=== PATIENT | female | born 1940 | race Caucasian/White ===

== ENCOUNTER 2018-12-09 18:39 | Emergency (ER) | payer MEDICARE, OTHER ==
[~2018-12-09] VITALS: Ht 157.4 cm; Wt 62.3 kg
[2018-12-09] MEDS ORDERED: MECLIZINE 25 MG (ANTIVERT) TAB PO ONE (19:15)
[2018-12-09] MEDS ORDERED: cloNIDine 0.2 MG (CATAPRES) TAB PO ONE (19:15)
[2018-12-09] MEDS ORDERED: ONDANSETRON 4 MG/2 ML (SDV) Z0FRAN IVP ONE (19:15)
[2018-12-09 19:21] LABS: BASOPHILS % (AUTO) 1 % (0-10); EOSINOPHILS % (AUTO) 3 % (0-10); HEMATOCRIT 40 % (35-52); LYMPHOCYTES # (AUTO) 1.3 X 10^3 (1.0-4.0); LYMPHOCYTES % (AUTO) 16 % (12-44); MEAN CORPUSCULAR HEMOGLOBIN 30 PG (25-34); MEAN CORPUSCULAR HGB CONC 33 G/DL (32-36); MEAN CORPUSCULAR VOLUME 91 FL (80-99); MEAN PLATELET VOLUME 8.4 FL (7.4-10.4); MONOCYTES % (AUTO) 10 % (0-12); NEUTROPHILS # (AUTO) 6.3 X 10^3 (1.8-7.8); NEUTROPHILS % (AUTO) 71 % (42-75); PLATELET COUNT 390 10^3/uL (130-400); RED CELL DISTRIBUTION WIDTH 14.2 % (10.0-14.5); WHITE BLOOD COUNT 8.8 10^3/uL (4.3-11.0)
[2018-12-09 19:22] LABS: BASOPHILS # (AUTO) 0.1 10^3/uL (0.0-0.1); EOSINOPHILS # (AUTO) 0.2 10^3/uL (0.0-0.3); MONOCYTES # (AUTO) 0.9 X 10^3 (0.0-1.0)
[2018-12-09 19:32] LABS: BILIRUBIN,URINE NEGATIVE (NEGATIVE); CLARITY,URINE CLEAR; COLOR,URINE YELLOW; GLUCOSE, URINE (UA) NEGATIVE (NEGATIVE); KETONES,URINE NEGATIVE (NEGATIVE); LEUKOCYTE ESTERASE ,URINE NEGATIVE (NEGATIVE); NITRITE,URINE NEGATIVE (NEGATIVE); PH,URINE 7.5 (5-9); PROTEIN,URINE NEGATIVE (NEGATIVE); UROBILINOGEN,URINE 0.2 MG/DL (NORMAL)
--- NOTE | 2018-12-09 19:40 | Diagnostic Imaging Report ---
INDICATION: Dizziness and nausea. Frontal chest obtained at 7:06 p.m. Heart is borderline in size. Aorta is tortuous. There is elevation of the right hemidiaphragm. There are no acute infiltrates. There is a calcified granuloma in the left lung base. There is no pneumothorax or pleural fluid. IMPRESSION: Borderline heart size with tortuous aorta. Elevation of the right hemidiaphragm. No acute process in the chest. Dictated by: Dictated on workstation # [id number]
--- NOTE | 2018-12-09 19:43 | Diagnostic Imaging Report ---
INDICATION: Dizziness and nausea. Noncontrast brain CT performed. There is no prior study for comparison. There were no extra-axial fluid collections. There is mild atrophic change. There are mild low-density changes in the deep white matter compatible with chronic ischemic change. There is some ill-defined low-density in the subcortical region in the right frontal lobe of uncertain chronicity. Consider elective MRI for further evaluation. The ventricles are normal in size. Calvarial windows appear normal. IMPRESSION: There are mild atrophic changes. There are some chronic ischemic changes in deep white matter. There is ill-defined low-density change in the right frontal lobe which may be due to old ischemic change but would consider elective MRI pre and postcontrast for further evaluation to exclude underlying lesion. There is no acute finding otherwise seen. Dictated by: Dictated on workstation # [id number]
[2018-12-09 19:48] LABS: ALANINE AMINOTRANSFERASE 21 U/L (0-55); ALBUMIN 4.9 GM/DL (3.2-4.5); ALKALINE PHOSPHATASE 54 U/L (40-136); BILIRUBIN,TOTAL 0.4 MG/DL (0.1-1.0); BUN/CREATININE RATIO 16; CALCIUM 9.8 MG/DL (8.5-10.1); CARBON DIOXIDE 28 MMOL/L (21-32); CHLORIDE 90 MMOL/L (98-107); CREATININE SERUM 0.73 MG/DL (0.60-1.30); GFR ESTIMATED > 60; GLUCOSE 112 MG/DL (70-105); POTASSIUM 3.3 MMOL/L (3.6-5.0); SODIUM 133 MMOL/L (135-145); TOTAL PROTEIN 7.8 GM/DL (6.4-8.2)
[2018-12-09] MEDS ORDERED: LORA-405 SL (20:37)
[2018-12-09] MEDS ORDERED: ONDA4TAB11 PO (20:37)
--- NOTE | 2018-12-09 20:46 | ED Cardiac General ---
History of Present Illness General Chief Complaint: Cardiac/General Problems Stated Complaint: BP 182/100; N/V & DIZZINESS Nursing Triage Note: Patient c/o nausea, vomiting, dizziness, and high blood pressure. States that she started feeling bad around 5pm after getting a message. Her family reports that the patient started feeling dizzy and nauseated so they took her blood pressure and it was reportedly 182/100. The went to [facility] walk in clinic and were told to come to the ED for further evaluation. Source: patient Exam Limitations: no limitations History of Present Illness Date Seen by Provider: Dec 09, 2018 Time Seen by Provider: 18:30 Initial Comments Patient is 78-year-old female with history of vertigo presents with acute onset of vertigo/dizziness prior prior to ED arrival. Patient was getting a massage treatment of her sciatica times symptoms began. Patient reports feeling dizzy pounds. She reports nausea vomiting and feeling unwell. She denies headache, blurred vision, chest pain palpitation shortness of breath. Dizziness this was when the patient opens her eyes and with head movement. Patient also noted to be hypertensive. States she took her medications earlier today but did not have meclizine at that time the dizziness began. No urinary frequency urgency. Extremity weakness loss of sensation. No other strokelike symptoms. Timing/Duration: 1 hour Severity: moderate Activities at Onset: activity Prior CP/Workup: no prior chest pain Associated Systoms: Nausea/Vomiting Allergies and Home Medications Allergies Uncoded Allergies: sulf (Allergy, Unknown, 12/09/18) Home Medications Lorazepam 1 Mg Tablet, 1 MG SL Q8 PRN for q8 Prescribed by: FERNANDO GALLEGOS on 12/09/182036 Ondansetron 4 Mg Tab.rapdis, 4 MG PO Q6H Prescribed by: FERNANDO GALLEGOS on 12/09/182036 Patient Home Medication List Home Medication List Reviewed: Yes Review of Systems Review of Systems Constitutional: diaphoresis EENTM: See HPI Cardiovascular: See HPI Gastrointestinal: See HPI Genitourinary: See HPI Musculoskeletal: see HPI Skin: see HPI Psychiatric/Neurological: See HPI Endocrine: Excessive Sweating Hematologic/Lymphatic: See HPI Past Mayvnxy-Uavaxb-Iolwkj Hx Past Med/Social Hx: Reviewed Nursing Past Med/Soc Hx Patient Social History Alcohol Use: Denies Use Recreational Drug Use: No Smoking Status: Never a Smoker 2nd Hand Smoke Exposure: No Recent Foreign Travel: No Contact w/Someone Who Travel: No Recent Infectious Disease Expo: No Recent Hopitalizations: No Physical Abuse: No Sexual Abuse: No Mistreated: No Fear: No Seasonal Allergies Seasonal Allergies: Yes Past Medical History Surgeries: Yes Adrenal, Hysterectomy Respiratory: Yes Asthma Cardiac: Yes Hypertension Neurological: No [employer] History: Hysterectomy Genitourinary: No Gastrointestinal: No Musculoskeletal: No Endocrine: No HEENT: No Cancer: No Psychosocial: No Integumentary: No Blood Disorders: No Physical Exam Vital Signs Vital Signs - First Documented 12/09/18 18:53 Temp 35.8 Pulse 91 Resp 16 B/P (MAP) 209/110 (143) Pulse Ox 96 O2 Delivery Room Air Capillary Refill : Less Than 3 Seconds Height, Weight, BMI Height: '" Weight: lbs. oz. kg; 25.00 BMI Method: General Appearance: No Apparent Distress, WD/WN HEENT: PERRL/EOMI, Normal ENT Inspection, Pharynx Normal, Other (horizontal nystagmus, fatigues) Neck: Non Tender, Supple Respiratory: Chest Non Tender, Lungs Clear Cardiovascular: Regular Rate, Rhythm, No Edema, No Murmur Gastrointestinal: Non Tender, Soft Extremity: Normal Capillary Refill, Normal Inspection, Non Tender Neurologic/Psychiatric: Oriented x3, No Motor/Sensory Deficits Skin: Diaphoresis Focused Exam Sepsis Stage: Ruled Out Progress/Results/Core Measures Results/Orders Lab Results Laboratory Tests Test 12/09/18 19:10 12/09/18 19:25 Range/Units White Blood Count 8.8 4.3-11.0 10^3/uL Red Blood Count 4.40 4.35-5.85 10^6/uL Hemoglobin 13.0 11.5-16.0 G/DL Hematocrit 40 35-52 % Mean Corpuscular Volume 91 80-99 FL Mean Corpuscular Hemoglobin 30 25-34 PG Mean Corpuscular Hemoglobin Concent 33 32-36 G/DL Red Cell Distribution Width 14.2 10.0-14.5 % Platelet Count 390 130-400 10^3/uL Mean Platelet Volume 8.4 7.4-10.4 FL Neutrophils (%) (Auto) 71 42-75 % Lymphocytes (%) (Auto) 16 12-44 % Monocytes (%) (Auto) 10 0-12 % Eosinophils (%) (Auto) 3 0-10 % Basophils (%) (Auto) 1 0-10 % Neutrophils # (Auto) 6.3 1.8-7.8 X 10^3 Lymphocytes # (Auto) 1.3 1.0-4.0 X 10^3 Monocytes # (Auto) 0.9 0.0-1.0 X 10^3 Eosinophils # (Auto) 0.2 0.0-0.3 10^3/uL Basophils # (Auto) 0.1 0.0-0.1 10^3/uL Sodium Level 133 L 135-145 MMOL/L Potassium Level 3.3 L 3.6-5.0 MMOL/L Chloride Level 90 L 98-107 MMOL/L Carbon Dioxide Level 28 21-32 MMOL/L Anion Gap 15 H 5-14 MMOL/L Blood Urea Nitrogen 12 7-18 MG/DL Creatinine 0.73 0.60-1.30 MG/DL Estimat Glomerular Filtration Rate > 60 BUN/Creatinine Ratio 16 Glucose Level 112 H 70-105 MG/DL Calcium Level 9.8 8.5-10.1 MG/DL Corrected Calcium 8.5-10.1 MG/DL Total Bilirubin 0.4 0.1-1.0 MG/DL Aspartate Amino Transf (AST/SGOT) 26 5-34 U/L Alanine Aminotransferase (ALT/SGPT) 21 0-55 U/L Alkaline Phosphatase 54 40-136 U/L Troponin I < 0.30 <0.30 NG/ML Pro-B-Type Natriuretic Peptide 193.9 H <75.0 PG/ML Total Protein 7.8 6.4-8.2 GM/DL Albumin 4.9 H 3.2-4.5 GM/DL Urine Color YELLOW Urine Clarity CLEAR Urine pH 7.5 5-9 Urine Specific [place] 1.010 L 1.016-1.022 Urine Protein NEGATIVE NEGATIVE Urine Glucose (UA) NEGATIVE NEGATIVE Urine Ketones NEGATIVE NEGATIVE Urine Nitrite NEGATIVE NEGATIVE Urine Bilirubin NEGATIVE NEGATIVE Urine Urobilinogen 0.2 NORMAL MG/DL Urine Leukocyte Esterase NEGATIVE NEGATIVE Urine RBC (Auto) TRACE H NEGATIVE My Orders Orders - FERNANDO GALLEGOS DO Ekg Tracing (12/09/18 18:54) Cbc With Automated Diff (12/09/18 18:54) Comprehensive Metabolic Panel (12/09/18 18:54) Troponin I Fs (12/09/18 18:54) Chest 1 View Ap/Pa Only (12/09/18 18:54) Urinalysis Dipstick Only (12/09/18 18:54) Probnp Fs (12/09/18 18:54) Ct Head Wo (12/09/18 18:54) Clonidine Tablet (Catapres Tablet) (12/09/18 19:15) Ondansetron Injection (Zofran Injectio (12/09/18 19:15) Meclizine Tablet (Antivert Tablet) (12/09/18 19:15) Medications Given in ED Current Medications Medications Dose Ordered Sig/Licha Route Start Time Stop Time Status Last Admin Dose Admin Clonidine HCl 0.2 mg ONCE ONCE PO 12/09/18 19:15 12/09/18 19:16 DC 12/09/18 19:17 0.2 MG Meclizine HCl 25 mg ONCE ONCE PO 12/09/18 19:15 12/09/18 19:16 DC 12/09/18 19:17 25 MG Ondansetron HCl 4 mg ONCE ONCE IVP 12/09/18 19:15 12/09/18 19:16 DC 12/09/18 19:18 4 MG Vital Signs/I&O 12/09/18 18:53 Temp 35.8 Pulse 91 Resp 16 B/P (MAP) 209/110 (143) Pulse Ox 96 O2 Delivery Room Air Blood Pressure Mean: 143 Departure Communication (Admissions) EKG: Normal sinus rhythm, rate 97, no acute ST-T wave changes, QTC 446. Patient's dizziness nausea and blood pressure treated. Symptoms significantly improved. Patient resting comfortably. CT, chest x-ray, lab and EKG reviewed. Recommendations home rest continued supportive care with PCP follow-up as needed. Home safety instructions reviewed. Return precautions reviewed. Patient family verbalize understanding. Discharge instructions prior to departure. Impression Primary Impression: Nausea & vomiting Additional Impressions: Accelerated hypertension Vertigo Disposition: 01 HOME, SELF-CARE Condition: Improved Departure-Patient Inst. Patient Instructions: Vertigo (a Type of Dizziness) Add. Discharge Instructions: Please take Zofran for nausea adn meclzine as needed for dizziness. Take Ativan if symptoms persist. Avoid standing and walking if dizzy as you are at increased fall and injury. Follow up with your PCP for reevaluation next week. Return to the ED if new or worsening symptoms. All discharge instructions reviewed with patient and/or family. Voiced understanding. Scripts Lorazepam (Ativan) 1 Mg Tablet 1 MG SL Q8 PRN for q8 for 7 Days, #10 TAB Prov: FERNANDO GALLEGOS DO 12/09/18 Ondansetron (Ondansetron Odt) 4 Mg Tab.rapdis 4 MG PO Q6H, #10 TAB Prov: FERNANDO GALLEGOS DO 12/09/18 FERNANDO GALLEGOS DO Dec 09, 2018 20:46
[2018-12-09 20:50] VITALS: BP 161/86
== END 2018-12-09 20:50 | disposition home or self-care (01) ==
LOC: ER FS 18:41
DX: R11.2 Nausea with vomiting, unspecified (principal); I10 Essential (primary) hypertension; R42 Dizziness and giddiness; J45.909 Unspecified asthma, uncomplicated; Z88.2 Allergy status to sulfonamides; Z90.710 Acquired absence of both cervix and uterus
CPT/HCPCS: 36415; 70450; 71045; 80053; 81002; 83880; 84484; 85025; 93005; 96374